=== PATIENT | female | born 1960 | race Caucasian/White ===

== ENCOUNTER → 2016-08-16 | Outpatient (CLI) | payer OTHER ==
[~2016-08-16] MED LIST: AFRIN NAE; CHOL100010 PO; CLR10 PO; HYDR25TA5 PO; KELP100T PO; LEVO200T PO; METO-217 PO; MULTTAB83 PO; POTA1POW PO; TRAM-10 PO
[2016-08-16 16:41] LABS: URINE APPEARANCE CLEAR (CLEAR); URINE BILIRUBIN NEG (NEG); URINE COLOR DK YELLOW; URINE EPITHELIAL CELL AUTO 0-5 /lpf (0-5); URINE NITRITE POS (NEG); URINE SPECIFIC GRAVITY 1.012 (1.000-1.030); UROBILINOGEN NEG (NEG); ZZUR CULT IF INDIC CLEAN CATCH NO
[2016-08-16 16:42] LABS: MANUAL MICROSCOPIC REQUIRED? NO; REVIEW REQ? NO
== END | disposition home or self-care (01) ==
LOC: C.LAB1850 15:45
PROVIDERS: ATTEND Internal Medicine
DX: R05 Cough (principal); N39.0 Urinary tract infection, site not specified

== ENCOUNTER → 2016-09-09 | Outpatient (CLI) | payer OTHER ==
[2016-09-09 14:58] LABS: LYME DISEASE AB IGG NEG (NEG)
[2016-09-09 14:59] LABS: LYME DISEASE AB IGM EQUIVOCAL (NEG)
[2016-09-13 09:30] LABS: 18KDIGG BAND NONREACTIVE (NONREACTIVE); 23KDIGG BAND NONREACTIVE (NONREACTIVE); 23KDIGM BAND REACTIVE (NONREACTIVE); 28KDIGG BAND NONREACTIVE (NONREACTIVE); 30KDIGG BAND NONREACTIVE (NONREACTIVE); 39KDIGG BAND NONREACTIVE (NONREACTIVE); 39KDIGM BAND NONREACTIVE (NONREACTIVE); 41KDIGG BAND REACTIVE (NONREACTIVE); 41KDIGM BAND NONREACTIVE (NONREACTIVE); 45KDIGG BAND NONREACTIVE (NONREACTIVE); 58KDIGG BAND NONREACTIVE (NONREACTIVE); 66KDIGG BAND NONREACTIVE (NONREACTIVE); 93KDIGG BAND NONREACTIVE (NONREACTIVE)
== END | disposition home or self-care (01) ==
LOC: C.LABBC 10:35
PROVIDERS: ATTEND Internal Medicine Geriatric Medicine
DX: E03.9 Hypothyroidism, unspecified (principal); Z86.19 Personal history of other infectious and parasitic diseases

== ENCOUNTER → 2016-12-18 | Outpatient (CLI) | payer BC, OTHER | END | disposition home or self-care (01) | LOC: C.LAB1850 12:03 | PROVIDERS: ATTEND Physician Assistant | DX: J01.90 Acute sinusitis, unspecified (principal) ==

== ENCOUNTER → 2017-01-08 | Outpatient (CLI) | payer BC ==
[2017-01-08 16:51] LABS: POTASSIUM 4.1 mmol/L (3.5-5.1)
[2017-01-08 17:05] LABS: THYROID STIMULATING HORMONE 2.92 uIu/ml (0.300-4.500)
[2017-01-15 05:39] LABS: EBV EARLY ANTIGEN AB <9.00 U/ML; EPSTEIN BARR VIR CAPSID IGG >750.00 U/ML
== END | disposition home or self-care (01) ==
LOC: C.LAB1850 14:35
PROVIDERS: ATTEND Physician Assistant
DX: G47.19 Other hypersomnia (principal); E03.9 Hypothyroidism, unspecified; I10 Essential (primary) hypertension

== ENCOUNTER → 2017-02-14 | Outpatient (CLI) | payer OTHER ==
--- NOTE | 2017-02-14 13:36 | DIAGNOSTIC IMAGING REPORT ---
CHEST 2 VIEWS ROUTINE CLINICAL HISTORY: COUGH COMPARISON STUDY: 03/09/2015 FINDINGS: The cardiac and mediastinal contours are normal. There is no evidence of focal pulmonary consolidation. There is no evidence of failure. No pleural effusions are visualized.[ IMPRESSION: No active disease in the chest. Electronically signed by: Andres Weinstein M.D. 02/14/2017 1:35 PM Dictated Date/Time: 02/14/2017 1:34 PM
== END | disposition home or self-care (01) ==
LOC: C.RAD1850 13:21
PROVIDERS: ATTEND Physician Assistant
DX: R05 Cough (principal); J45.909 Unspecified asthma, uncomplicated

== ENCOUNTER 2018-09-24 19:04 | Inpatient (IN) ==
--- NOTE | 2018-09-24 20:07 | XRay Report ---
XR forearm LT 2V CLINICAL HISTORY: pain post fall COMPARISON: None FINDINGS: No proximal left radial or ulnar fracture is noted. Alignment of the left elbow is anatomi c. No evidence for a left elbow joint effusion. Note is made of acute comminuted displaced distal lef t radial fracture with intra-articular extension and dorsal tilt of the distal component. There is no acute left ulnar fracture. IMPRESSION: Acute comminuted displaced distal left radial fracture with intra-articular extension and dorsal tilt of the distal component. Electronically signed by: Davidson Rodriguez M.D. 09/24/2018 8:06 PM
--- NOTE | 2018-09-24 20:08 | XRay Report ---
XR wrist LT 2V CLINICAL HISTORY: s/p fall and wrist pain COMPARISON: None FINDINGS: Note is made of an acute comminuted displaced distal left radial fracture with intra-artic ular extension. There is dorsal tilt of the distal component. There is no acute left ulnar fracture. Left wrist soft tissue swelling is present. 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 Carpal bones appear intact. IMPRESSION: Acute comminuted displaced distal left radial fracture with intra-articular extension and dorsal tilt of the distal component. Electronically signed by: Davidson Rodriguez M.D. 09/24/2018 8:07 PM
[2018-09-24] MEDS ORDERED: OXYCODONE HCL IR 5 MG TAB (IMMEDIATE RELEASE) PO STA (20:13)
--- NOTE | 2018-09-24 20:22 | Emergency Department Note ---
ED Provider Note CHIEF COMPLAINT: Left wrist injury HISTORY OF PRESENT ILLNESS: This [id number] 58-year-old female patient presents to the emergency department, ambulatory, complaining of pain in the left wrist after a fall. The patient states she was walking in to her house when she tripped and fell, landing on her left side. The patient states she was carrying a baby gate and landed on the left wrist, and the gait landed on top of the wrist. She reports severe pain in her left wrist and feels that her forearm is disconnected. The patient is not able to move their wrist. The patient states the pain is sharp and 10/10. No laceration, no weakness. No numbness or tingling. The patient denies any other injury. The patient is able to move their fingers and elbow, but is unwilling to move them much due to pain. The patient has not had a previous fracture to this wrist. The patient has taken no medications for the pain. REVIEW OF SYSTEMS: A 6 system review of systems was performed with positives and pertinent negatives in the HPI. ALLERGIES: Diazepam, Levaquin, silodosin, caffeine, Celebrex, lanolin, losartan, nebivolol, propylene glycol, yellow dye, blue dye, clarithromycin, erythromycin base, glipizide, Januvia PHYSICAL EXAM: Vital Signs: Reviewed Nurse's notes, vital signs stable. GENERAL: This is a 58-year-old white female, in no acute distress, but appears to be in pain, well-developed, well-neurished. NEURO: Alert and oriented to person place and time. Normal sensation to light and sharp touch. MUSCULOSKELETAL: There is no obvious deformity of the left wrist. There is tenderness and edema over the distal radius and ulna. There is also tenderness over the proximal radius and ulna. There is no snuff box tenderness. Range of motion is limited at the elbow and wrist due to pain. There is no tenderness of the elbow, hand or fingers. Bullet Maker strength 1/5. Radial pulse 2+. SKIN: Normal and intact. The hand is warm and well perfused with capillary refill less than 2 seconds. RADIOLOGY: XR forearm LT 2V CLINICAL HISTORY: pain post fall COMPARISON: None FINDINGS: No proximal left radial or ulnar fracture is noted. Alignment of the left elbow is anatomic. No evidence for a left elbow joint effusion. Note is made of acute comminuted displaced distal left radial fracture with intra- articular extension and dorsal tilt of the distal component. There is no acute left ulnar fracture. IMPRESSION: Acute comminuted displaced distal left radial fracture with intra- articular extension and dorsal tilt of the distal component. Electronically signed by: Davidson Rodriguez M.D. 09/24/2018 8:06 PM XR wrist LT 2V CLINICAL HISTORY: s/p fall and wrist pain COMPARISON: None FINDINGS: Note is made of an acute comminuted displaced distal left radial fracture with intra-articular extension. There is dorsal tilt of the distal component. There is no acute left ulnar fracture. Left wrist soft tissue swell ing is present. 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 Carpal bones appear intact. IMPRESSION: Acute comminuted displaced distal left radial fracture with intra- articular extension and dorsal tilt of the distal component. Electronically signed by: Davidson Rodriguez M.D. 09/24/2018 8:07 PM XR chest 1V portable CLINICAL HISTORY: pre-op COMPARISON STUDY: Chest CT June 08, 2018. FINDINGS: Lung volumes are normal. There is no consolidation or evidence for pulmonary edema. No pneumothorax or pleural effusion is noted. Cardiomediastinal silhouette is normal. IMPRESSION: No acute cardiopulmonary findings. Electronically signed by: Davidson Rodriguez M.D. 09/24/2018 10:17 PM EKG (interpreted by myself): Normal sinus rhythm with a ventricular rate of 87. No acute ischemic change. No ectopy. No previous EKG available for comparison. EMERGENCY DEPARTMENT COURSE: I examined the patient. She was offered analgesics either IM or IV and declined. The patient states unless we injected morphine or fentanyl directly into the extremity, it would not work for her. She was agreeable to a dose of oxycodone. An X-ray of the left forearm and wrist was reviewed by myself and radiologist and showed an acute comminuted displaced dis ant left radial fracture with intra-articular extension and dorsal tilt of the distal component. I contacted Dr. Mullins. He did review the film. He called back and offered the patient admission tonight with surgery tomorrow versus outpatient follow-up next week. He did not feel that reduction at this time would be terribly successful. I did discuss these options with the patient at bedside. She did elect for admission. I contacted Dr. Harpreet back and he was agreeable to complete the admission. Preop labs and EKG ordered and reviewed. Mild leukocytosis which I suspect is reactive and associated to stress. Renal, hepatic function electrolytes without significant abnormality. EKG reviewed by myself as above. A sugar tong Ortho-Glass splint was placed under my direction and the position was satisfactory. Neurovascular status rechecked and intact. The patient was given an arm sling for comfort. Please see Dr. Mullins's dictation regarding ongoing management and care of this patient. She was admitted under his service. I attest that I have personally reviewed the patient's current medication list. Blood Pressure Screening: Patient was found to have a slightly elevated blood pressure due to circumstances. I do not believe that the patient requires hypertension monitoring. Etiologies such as soft tissue injury, fracture, dislocation, neurovascular compromise, compartment syndrome, as well as others were entertained. DIAGNOSIS: Left distal radius fracture The chart was completed utilizing [employer] Speech voice recognition software. Gra mmatical errors, random word insertions, pronoun errors, and incomplete sentences are an occasional consequence of this system due to software limitations, ambient noise, and hardware issues. Any formal questions or concerns about the content, text, or information contained within the body of this dictation should be directly addressed to the provider for clarification. Impression & Plan Distal radius fracture, left, Fall Past Med/Surg History Medical History Hypertension Social History Preferred Language: Slovak Beliefs That Will Affect Care: Orthodoxy Current Living Situation: Alone and Significant Other Current Living Situation Comment: SO occasional occupant Other Information That Helps Us Care for You: Yes (Extremely sensitive to medications (see allergies)) Feels Safe at Home: Yes Safety Concerns: Feels Safe At This Time Smoking Status: Never smoker Hx Alcohol Use: Yes Hx Substance Use: No Results & Data Vital Signs Vital Signs - 24 hr 09/24/18 19:37 09/24/18 21:41 09/24/18 21:45 Temperature 36.6 C 36.8 C Temperature Source Oral Oral Sepsis Recent Fever Within 48 Hours No Sepsis New/Unexplained Change in Mental Status No Sepsis Action Taken by Nursing No Action Required Pulse Rate 95 H 85 Pulse Rate [Right Brachial] 77 Pulse Rhythm Regular Pulse Rhythm [Right Brachial] Pulse Strength Normal Pulse Strength [Right Brachial] Respiratory Rate 18 24 18 Respiratory Effort / Characteristics Non-Labored Spontaneous Non-Labored Spontaneous Respiratory Depth Normal Normal Respiratory Pattern Regular Regular Blood Pressure 198/139 H 181/106 H Blood Pressure [Right Arm] 160/87 H Blood Pressure Mean 158 Blood Pressure Mean [Right Arm] 111 Blood Pressure Position Sitting Blood Pressure Position [Right Arm] Pulse Oximetry 94 95 96 Oxygen Delivery Method Room Air Room Air Room Air 09/24/18 23:22 Temperature 36.6 C Temperature Source Oral Sepsis Recent Fever Within 48 Hours Sepsis New/Unexplained Change in Mental Status Sepsis Action Taken by Nursing Pulse Rate Pulse Rate [Right Brachial] 87 Pulse Rhythm Pulse Rhythm [Right Brachial] Regular Pulse Strength Pulse Strength [Right Brachial] Normal Respiratory Rate 22 Respiratory Effort / Characteristics Respiratory Depth Normal Respiratory Pattern Blood Pressure Blood Pressure [Right Arm] 181/97 H Blood Pressure Mean Blood Pressure Mean [Right Arm] 125 Blood Pressure Position Blood Pressure Position [Right Arm] Lying Pulse Oximetry 94 Oxygen Delivery Method Room Air Laboratory Data Result diagrams: 09/24/18 21:00 09/24/18 22:06 Lab Results 09/24/18 09/24/18 09/24/18 Range/Units 21:00 21:00 22:06 WBC 13.50 H (4.8-10.8) K/uL RBC 5.17 (4.2-5.4) M/uL Hgb 15.5 (12.0-16.0) g/dL Hct 45.5 (37-47) % MCV 88.0 (80-100) fL MCH 30.0 (25-34) pg MCHC 34.1 (32-36) g/dL RDW Std Deviation 45.6 (36.4-46.3) fL RDW Coeff of Dimitris 14.1 (11.5-14.5) % Plt Count 300 (130-400) K/uL MPV 10.1 (7.4-10.4) fL Immature Gran % (Auto) 0.3 % Neut % (Auto) 64.4 % Lymph % (Auto) 25.2 % [place] % (Auto) 7.6 % Eos % (Auto) 2.1 % Baso % (Auto) 0.4 % Immature Gran # (Auto) 0.04 H (0.00-0.02) K/uL Neut # (Auto) 8.70 H (1.4-6.5) K/uL Lymph # (Auto) 3.40 (1.2-3.4) K/uL [place] # (Auto) 1.02 H (0.11-0.59) K/uL Eos # (Auto) 0.29 (0-0.5) K/uL Baso # (Auto) 0.05 (0-0.2) K/uL Sodium 137 (136-145) mmol/L Potassium 3.7 (3.5-5.1) mmol/L Chloride 107 (98-107) mmol/L Carbon Dioxide 23 (21-32) mmol/L Anion Gap 7.0 (3-11) BUN 18 (7-18) mg/dl Creatinine 0.66 (0.6-1.2) mg/dl Est Cr Clr Drug Dosing 112.6 ml/min Est GFR ( Amer) 112.9 Est GFR (Non-Af Amer) 97.4 BUN/Creatinine Ratio 27.5 H (10-20) Glucose 152 H (70-99) mg/dl Calcium 9.1 (8.5-10.1) mg/dl Total Bilirubin 0.4 (0.2-1) mg/dl AST 37 (15-37) U/L ALT 67 (12-78) U/L Alkaline Phosphatase 113 (45-117) U/L Total Protein 8.0 (6.4-8.2) gm/dl Albumin 3.9 (3.4-5.0) gm/dl Globulin 4.1 H (2.5-4.0) gm/dl Albumin/Globulin Ratio 1.0 (0.9-2) Administered Medications Sodium Chloride (Nss 1000ml) 1,000 mls @ 80 mls/hr IV .[id number] KEVIN Stop: 10/24/18 22:06 Last Admin: 09/24/18 23:40 Dose: 80 mls/hr Documented by: [id number] Discontinued Medications Oxycodone HCl (Roxicodone Immediate Rel) 5 mg PO NOW STA Stop: 09/24/18 20:14 Last Admin: 09/24/18 20:36 Dose: 5 mg Documented by: [id number] Oxycodone HCl (Roxicodone Immediate Rel) Confirm Administered Dose 5 mg .ROUTE .STK-MED ONE Stop: 09/24/18 23:39 Last Admin: 09/24/18 23:40 Dose: 5 mg Documented by: [id number] Discharge Plan Visit Data *Final* Discharge Date/Time: 09/24/18 21:41 Chief Complaint: Arm Pain Stated Complaint: FALL, LEFT WRIST/ARM PAIN ED Provider: Savanah Ochoa ED Midlevel Provider: Kerri Gardner Discharge Problem: Distal radius fracture, left, Fall Patient Disposition: Admitted As Inpatient Condition: Good Discharge Instructions Interventions: ED Discharge Assessment Last Done: 09/24/18 21:41
[2018-09-24 21:11] LABS: Basophils # (auto) 0.05 K/uL (0-0.2); Basophils % (auto) 0.4 %; Eosinophils # (auto) 0.29 K/uL (0-0.5); Eosinophils % (auto) 2.1 %; Hematocrit (blood only) 45.5 % (37-47); Hemoglobin 15.5 g/dL (12.0-16.0); Immature Granulocytes # (auto) 0.04 K/uL (0.00-0.02); Immature Granulocytes % (auto) 0.3 %; Lymphocytes % (auto) 25.2 %; Mean Corpuscular Hgb Conc 34.1 g/dL (32-36); Mean Platelet Volume 10.1 fL (7.4-10.4); Monocytes # (auto) 1.02 K/uL (0.11-0.59); Monocytes % (auto) 7.6 %; Neutrophils % (auto) 64.4 %; Platelet Count 300 K/uL (130-400); RDW Coefficient of Variation 14.1 % (11.5-14.5); RDW Standard Deviation 45.6 fL (36.4-46.3); Red Blood Count 5.17 M/uL (4.2-5.4)
[2018-09-24 21:38] LABS: Albumin Level 3.9 gm/dl (3.4-5.0); BUN Creatinine Ratio 27.5 (10-20); Bilirubin,Total 0.4 mg/dl (0.2-1); Calcium 9.1 mg/dl (8.5-10.1); Creatinine Clr Calc Pharmacy 112.6 ml/min; Est GFR (African American) 112.9; Est GFR (Non-African American) 97.4; Globulin 4.1 gm/dl (2.5-4.0)
[2018-09-24] MEDS ORDERED: METOCLOPRAMIDE HCL INJ 5 MG/ML 2 ML VIAL IV PRN (22:07)
[2018-09-24] MEDS ORDERED: ONDANSETRON INJ 2 MG/ML 2 ML VIAL IV PRN (22:07)
--- NOTE | 2018-09-24 22:18 | XRay Report ---
XR chest 1V portable CLINICAL HISTORY: pre-op COMPARISON STUDY: Chest CT June 08, 2018. FINDINGS: Lung volumes are normal. There is no consolidation or evidence for pulmonary edema. No pneu mothorax or pleural effusion is noted. Cardiomediastinal silhouette is normal. IMPRESSION: No acute cardiopulmonary findings. Electronically signed by: Davidson Rodriguez M.D. 09/24/2018 10:17 PM
[2018-09-24 22:36] LABS: Potassium 3.7 mmol/L (3.5-5.1)
[2018-09-24] MEDS ORDERED: OXYCODONE HCL IR 5 MG TAB (IMMEDIATE RELEASE) ONE (23:38)
[2018-09-24] MEDS: SODIUM CHLORIDE 0.9% 1000ML 1,000 ML IV SCH (23:40)
[2018-09-25] MEDS: HYDROmorphone INJ 0.5 MG/0.5 ML SYR IV PRN (01:55)
[2018-09-25] MEDS: OXYCODONE HCL IR 5 MG TAB (IMMEDIATE RELEASE) PO PRN ×2 (03:50→10:15)
[2018-09-25] MEDS ORDERED: CEFAZOLIN 2000MG 2,000 MG/15 ML SYR IV SCH (06:00)
--- NOTE | 2018-09-25 07:00 | History & Physical Report ---
Date of Service September 25, 2018 Assessment & Plan (1) Distal radius fracture, left: She is being admitted to the orthopedic service for open reduction internal fixation the following day. She understands all the risks, benefits, and alternatives of procedure and would like to proceed. She will be n.p.o. past midnight tonight. We will have case management talk to her after the procedure about possible return home, likely the following day. 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 She was at home last evening when she slipped and fell on a wet floor and fell directly on her left outstretched hand. She had immediate pain. She came to the emergency room where radiographs demonstrated a displaced left distal radius fracture. Given the fact that she lives alone and her body habitus, I was not confident that a reduction would hold. I felt it was best to admit her to the hospital and underwent open reduction internal fixation the following morning. Allergies Allergy/AdvReac Type Severity Reaction Status Date / Time diazepam Allergy Severe ANAPHYLAXIS Verified 06/03/18 12:26 levofloxacin Allergy Severe SEVERE Verified 06/03/18 12:26 HEADACH,ANAPHYLATIC SHOCK silodosin Allergy Severe SEVERE Verified 06/03/18 12:26 SWELLING, RESPIRATORY DISTRESS caffeine Allergy Mild Verified 06/03/18 12:26 blue dye Allergy Unknown RASH Verified 06/03/18 12:26 celecoxib Allergy Unknown RASH Unverified 06/03/18 12:26 lanolin Allergy Unknown Verified 06/03/18 12:26 losartan Allergy Unknown RASH Verified 06/03/18 12:26 nebivolol Allergy Unknown RASH Verified 06/03/18 12:26 propylene glycol Allergy Unknown RASH Verified 06/03/18 12:26 sorbitan esters Allergy Unknown RASH Verified 06/03/18 12:26 yellow dye Allergy Unknown RASH Verified 06/03/18 12:26 clarithromycin AdvReac Intermediate N/V/D Verified 06/03/18 12:26 erythromycin base AdvReac Intermediate GI Verified 06/03/18 12:26 COMPLAINTS glipizide AdvReac Joint Pain Unverified 06/03/18 12:26 sitagliptin [From Januvia] AdvReac Joint Pain Unverified 06/03/18 12:26 Home Medications Home Medications Medication Instructions Recorded Confirmed Type ciprofloxacin HCl [Cipro] 500 mg PO BID #20 tab 06/03/18 Rx hydrocodone-acetaminophen [[place]] 1 tab PO Q4H PRN #10 tab 06/03/18 Rx pentosan polysulfate sodium 100 mg PO TID #14 cap 06/03/18 Rx [Elmiron] telmisartan 40 mg PO DAILY 06/03/18 06/03/18 History Past Med/Surg History Medical History Hypertension Social History Preferred Language: Citizen Of [place] Beliefs That Will Affect Care: Tenriism Current Living Situation: Alone and Significant Other Current Living Situation Comment: SO occasional occupant Other Information That Helps Us Care for You: Yes (Extremely sensitive to medications (see allergies)) Feels Safe at Home: Yes Safety Concerns: Feels Safe At This Time Smoking Status: Never smoker Hx Alcohol Use: Yes Hx Substance Use: No Review of Systems All systems reviewed & are unremarkable except as noted in HPI & below Physical Exam Vital Signs (Past 24 Hours): Last Vital Signs Temp 36.7 C 09/25/18 00:41 Pulse 81 09/25/18 00:41 Resp 20 09/25/18 00:41 BP 160/89 H 09/25/18 00:41 Pulse Ox 95 09/25/18 00:41 Musculoskeletal: On physical examination of her left wrist, there is a coaptation splint in place. She is active motion of her fingers. Sensations intact. Results & Data Laboratory Results H & H 09/24/18 Range/Units 21:00 Hgb 15.5 (12.0-16.0) g/dL Hct 45.5 (37-47) % Diagnostic Findings X-rays of the left wrist show a displaced intra-articular left distal radius fracture. There is some dorsal displacement and dorsal comminution. Medications Administered Hydromorphone HCl (Dilaudid) 0.5 mg IV Q2H PRN PRN Reason: Pain Stop: 10/08/18 22:06 Last Admin: 09/25/18 01:55 Dose: 0.5 mg Documented by: [id number] Sodium Chloride (Nss 1000ml) 1,000 mls @ 80 mls/hr IV .[id number] KEVIN Stop: 10/24/18 22:06 Last Admin: 09/24/18 23:40 Dose: 80 mls/hr Documented by: [id number] Oxycodone HCl (Roxicodone Immediate Rel) 5 mg PO Q4H PRN PRN Reason: Pain Stop: 10/08/18 23:31 Last Admin: 09/25/18 03:50 Dose: 5 mg Documented by: [id number]
[2018-09-25] MEDS: CYCLOBENZAPRINE HCL 5 MG TAB PO SCH ×2 (07:26→13:17)
[2018-09-25] MEDS: ACETAMINOPHEN 325 MG TAB PO PRN ×3 (07:33→20:36)
[2018-09-25] MEDS: SODIUM CHLORIDE 0.9% 1000ML 1,000 ML IV SCH (10:15)
[2018-09-25] MEDS ORDERED: ROPIVACAINE 0.5% 5 MG/ML 30 ML VIAL ONE (14:40)
[2018-09-25] MEDS ORDERED: fentaNYL citrate 100 MCG/2 ML VIAL IV PRN (14:40)
[2018-09-25] MEDS ORDERED: ePHEDrine sulfate 50 MG/ML AMP IV PRN (14:40)
[2018-09-25] MEDS ORDERED: ONDANSETRON INJ 2 MG/ML 2 ML VIAL IV PRN (14:40)
[2018-09-25] MEDS ORDERED: ATROPINE SULFATE 0.1 MG/ML 10ML SYR IV PRN (14:40)
--- NOTE | 2018-09-25 15:10 | Anesthesiology Consultation ---
Date of Service September 25, 2018 Assessment & Plan (1) Encounter for pre-operative examination: Chart Review Chart Review: Acceptable Risk for Surgery and Patient NOT seen in Pre Admission Testing Consults Requested none NPO Date Last Intake of Fluids: 09/24/18 Time Last Intake of Fluids: 23:00 Last Intake of Fluids Comment: 1300 sips Date Last Intake of Solids: 09/24/18 Time Last Intake of Solids: 23:00 History Surgery Operation Date: 09/25/18 15:25 Proposed Procedures p Left Distal Radius Fracture Open Reduction Internal Fixation - Dao Mullins, Height/Weight Height: 5 ft 6 in Weight: 104.5 kg Allergies Allergy/AdvReac Type Severity Reaction Status Date / Time diazepam Allergy Severe ANAPHYLAXIS Verified 06/03/18 12:26 levofloxacin Allergy Severe SEVERE Verified 06/03/18 12:26 HEADACH,ANAPHYLATIC SHOCK silodosin Allergy Severe SEVERE Verified 06/03/18 12:26 SWELLING, RESPIRATORY DISTRESS caffeine Allergy Mild Verified 06/03/18 12:26 blue dye Allergy Unknown RASH Verified 06/03/18 12:26 celecoxib Allergy Unknown RASH Unverified 06/03/18 12:26 lanolin Allergy Unknown Verified 06/03/18 12:26 losartan Allergy Unknown RASH Verified 06/03/18 12:26 nebivolol Allergy Unknown RASH Verified 06/03/18 12:26 propylene glycol Allergy Unknown RASH Verified 06/03/18 12:26 sorbitan esters Allergy Unknown RASH Verified 06/03/18 12:26 yellow dye Allergy Unknown RASH Verified 06/03/18 12:26 clarithromycin AdvReac Intermediate N/V/D Verified 06/03/18 12:26 erythromycin base AdvReac Intermediate GI Verified 06/03/18 12:26 COMPLAINTS glipizide AdvReac Joint Pain Unverified 06/03/18 12:26 sitagliptin [From Januvia] AdvReac Joint Pain Unverified 06/03/18 12:26 Medications Home Medications Medication Instructions Recorded Confirmed Last Taken ciprofloxacin HCl [Cipro] 500 mg PO BID #20 tab 06/03/18 Unknown hydrocodone-acetaminophen [[place]] 1 tab PO Q4H PRN #10 tab 06/03/18 Unknown pentosan polysulfate sodium 100 mg PO TID #14 cap 06/03/18 Unknown [Elmiron] telmisartan 40 mg PO DAILY 06/03/18 06/03/18 Unknown Active Medications Generic Name Dose Route Start Last Admin Trade Name Freq PRN Reason Stop Dose Admin Acetaminophen 650 mg 09/25/18 06:55 09/25/18 12:00 Tylenol PO 10/25/18 06:54 650 mg Q4H PRN Administration Mild Pain Cyclobenzaprine HCl 5 mg 09/25/18 07:15 09/25/18 13:17 Flexeril PO 10/25/18 07:14 5 mg TID KEVIN Administration Hydromorphone HCl 0.5 mg 09/24/18 22:07 09/25/18 01:55 Dilaudid IV 10/08/18 22:06 0.5 mg Q2H PRN Administration Pain Sodium Chloride 1,000 mls @ 80 mls/hr 09/24/18 22:07 09/25/18 14:31 Nss 1000ml IV 10/24/18 22:06 0 mls/hr .[id number] KEVIN Infusion Oxycodone HCl 5 mg 09/24/18 23:32 09/25/18 10:15 Roxicodone Immediate Rel PO 10/08/18 23:31 5 mg Q4H PRN Administration Pain Past Medical History Medical History Obesity Hypertension Past Surgical History Surgical History History of carpal tunnel surgery Total knee replacement status B/l Past Anesthesia History No Hx of Anesthesia Complications and No Family Hx of Anesthesia Complications History of PONV No Motion Sickness Screening History of Motion Sickness: No Social History Smoking Status: Never smoker Hx Alcohol Use: Yes Alcohol type: hard liquor alcohol intake frequency: holidays/special occasions only Hx Substance Use: No substance use type: does not use Exercise / Class Metabolic Activity II 4-5 Yardwork/Stairs/Walk up hill Physical Exam Vital Signs Last Vital Signs Temp 36.8 C 09/25/18 14:48 Pulse 84 09/25/18 14:48 Resp 16 09/25/18 14:48 BP 190/103 H 09/25/18 14:48 Pulse Ox 94 09/25/18 14:48 Testing Electrocardiogram Date: 09/24/18 Findings: + NSR @ (87) lvh, lad Laboratory Results 09/24/18 21:00 09/24/18 22:06 09/25/18 08:05 POC Glucose 162 H
[2018-09-25] MEDS ORDERED: LIDOCAINE/EPINEPHRINE 1% 20 ML VIAL ONE (16:28)
[2018-09-25] MEDS ORDERED: PROPOFOL IV EMULSION 10 MG/ML 20 ML VIAL IV ONE (17:04)
[2018-09-25] MEDS ORDERED: LABETALOL HCL IV 5 MG/ML 20ML IV ONE (17:04)
--- NOTE | 2018-09-25 17:41 | Operative Report ---
Post Operative Report Pre & Post Diagnosis Operation Date: 09/25/18 15:25 Pre-Op Diagnosis: Displaced intra-articular left distal radius fracture Post-Op Diagnosis: Displaced intra-articular left distal radius fracture Procedure Operation Date: 09/25/18 15:25 Actual Procedures p Open Reduction Internal Fixation 3 part intra-articular distal radius fracture of the left Wrist(Left) - Dao Mullins DO Surgeon Dao Mullins DO Computer Sciences Professor Dao Ball PAC Estimated Blood Loss 10 Findings Consistent with Post-Op Diagnosis Specimens None Complications none Disposition Disposition: Recovery Room Indications Elvis a 58-year-old female who fell last night on her left outstretched hand. She came to the emergency room and radiographs demonstrated displaced distal radius fracture. She lives alone. She was admitted to the orthopedic service. She elected to undergo open reduction internal fixation of the distal radius fracture. Description of Procedure On September 25, 2018 the patient was brought down from her hospital bed to the preoperative holding area. The operative extremities identified and signed. She was given a supraclavicular nerve block on the left. She was taken back to the operating room and given some mild basic sedation. The left wrist was then prepped and draped in sterile fashion. A timeout was done. The patient and the operative extremity was properly identified. A midline incision was made directly over the flexor carpi radialis tendon. Dissection was taken down to the tendon at the tendon was retracted ulnarly. The supinator was elevated off the distal radius. The fracture was easily exposed. The fracture was then reduced. A Synthes 3-hole distal radial locking plate was then placed. A single screw was placed in the combination hole. Fluoroscopy was used to ensure adequate alignment of the plate and adequate reduction of the fracture. Once I was happy with the alignment of the plate the screw was tightened. The fracture was then reduced to the plate. A single locking screw was placed distally. Fluoroscopic images showed anatomic alignment of the plate and anatomic reduction of the fracture. The remainder of the distal locking screws were placed. The length of the screws were checked in the fluoroscopy. 2 proximal locking screws were then placed. Final fluoroscopic images showed anatomic alignment and reduction. No screws were penetrating the joint. The wound was then irrigated. Surrounding soft tissues were injected with lidocaine with epinephrine. The tourniquet was deflated and hemostasis was obtained. The skin was then closed with 3-0 Vicryl and 4-0 nylon suture. She was then placed in a volar splint. She was then taken to the post anesthesia care unit in stable condition. She tolerated the procedure well. I attest to the content of the Intraoperative Record and any orders documented therein. Any exceptions are noted below.
--- NOTE | 2018-09-25 17:56 | Fluoroscopy Report ---
FL wrist LT 2V CLINICAL HISTORY: L ORIF OF DISTAL RADIUS COMPARISON STUDY: Left wrist 09/24/2018. FLUOROSCOPY TIME: 29 seconds. FINDINGS: 2 fluoroscopic spot images of the left wrist demonstrate internal fixation of a distal radi us fracture with plate and screws. The hardware appears intact. The alignment is near-anatomic. IMPRESSION: Fluoroscopy provided for internal fixation of a distal left radius fracture. Electronically signed by: Zachary Amin M.D. 09/25/2018 5:55 PM
[2018-09-25] MEDS ORDERED: NALOXONE HCL 0.4 MG/1 ML VIAL/CARP IV PRN (18:38)
[2018-09-25] MEDS ORDERED: SODIUM CHLORIDE 0.9% 1000ML 1,000 ML IV SCH (18:38)
[2018-09-25] MEDS ORDERED: MAGNESIUM HYDROXIDE SUSP 30 ML UDC PO PRN (18:38)
[2018-09-25] MEDS ORDERED: BISACODYL 10 MG SUPP PR PRN (18:38)
--- NOTE | 2018-09-25 18:50 | Anesthesiology Progress Note ---
Date of Service September 25, 2018 Anesthesia Post Procedure Vital Signs Vital Signs: Temp Pulse Pulse Pulse Resp BP BP 09/25/18 18:15 36.4 C L 78 16 170/81 H 09/25/18 18:05 80 16 164/84 H 09/25/18 17:55 36.3 C L 81 12 145/98 H 09/25/18 14:48 36.8 C 84 16 190/103 H 09/25/18 07:36 36.6 C 80 16 160/95 H 09/25/18 00:41 36.7 C 81 20 160/89 H 09/24/18 23:22 36.6 C 87 22 181/97 H 09/24/18 21:45 36.8 C 77 18 160/87 H 09/24/18 21:41 85 24 181/106 H 09/24/18 19:37 36.6 C 95 H 18 198/139 H Pulse Ox 09/25/18 18:15 97 09/25/18 18:05 96 09/25/18 17:55 94 09/25/18 14:48 94 09/25/18 07:36 96 09/25/18 00:41 95 09/24/18 23:22 94 09/24/18 21:45 96 09/24/18 21:41 95 09/24/18 19:37 94 Pain Intensity Left Arm: Pain Intensity: 6 Notes Mental Status: alert / awake / arousable and participated in evaluation Patient Amnestic to Procedure: Yes Nausea / Vomiting: adequately controlled Pain: adequately controlled Airway Patency, RR, SpO2: stable & adequate BP & HR: stable & adequate Hydration State: stable & adequate Anesthetic Complications: no major complications apparent and Pt Satisfied with anesthetic care
[2018-09-25] MEDS: DOCUSATE SODIUM 100 MG CAP PO SCH (20:34)
[2018-09-25] MEDS: SENNA 8.6 MG TAB PO SCH (20:35)
[2018-09-26] MEDS: OXYCODONE/ACETAMINOPHEN 5mg/325mg TAB PO PRN ×3 (00:02→08:09)
[2018-09-26] MEDS: OXYCODONE HCL IR 5 MG TAB (IMMEDIATE RELEASE) PO PRN (05:42)
[2018-09-26] MEDS: CYCLOBENZAPRINE HCL 5 MG TAB PO SCH ×4 (07:33→20:08)
[2018-09-26] MEDS: DOCUSATE SODIUM 100 MG CAP PO SCH ×2 (08:10→20:11)
[2018-09-26] MEDS: HYDROmorphone INJ 0.5 MG/0.5 ML SYR IV PRN ×3 (08:59→20:08)
--- NOTE | 2018-09-26 09:38 | Orthopedic Progress Note ---
Date of Service September 26, 2018 Assessment & Plan (1) Distal radius fracture, left: We will give her some medications for the nausea. She does want to go home today. I offered her to stay an extra day if she was not feeling well but she did want to go home. She says a regimen of [place] and tramadol as well as Flexeril seem to work well for her pain. I told her I would give her those medications to take orally at home. She is going to be in the sling for at least 2 weeks until I see her in the office. She is orthopedically stable for discharge. Present on Admission?: Yes Valentine Aranda was seen and examined at bedside this morning. Unfortunately she still having a lot of pain and soreness. She is having some pain in her shoulder and pain in her wrist. She is very nauseous as well from the pain medications. She had no acute events overnight. Physical Exam Vital Signs (Past 24 Hours): Last Vital Signs Temp 36.9 C 09/26/18 07:44 Pulse 91 H 09/26/18 07:44 Resp 18 09/26/18 07:44 BP 180/111 H 09/26/18 07:44 Pulse Ox 95 09/26/18 07:44 Musculoskeletal: On physical examination of the left wrist, she can wiggle her fingers a little bit and her sensation is intact. She is wearing her sling as instructed. She has soreness in the shoulder region as well as in the wrist. She is very nauseous at bedside today. (1) Distal radius fracture, left Encounter type: initial encounter Fracture morphology: unspecified fracture morphology Fracture type: closed Qualified Code(s): S52.502A - Unspecified fracture of the lower end of left radius, initial encounter for closed fracture
[2018-09-26] MEDS: HYDROCODONE/ACETAMOPHEN 5/325MG TAB PO PRN ×3 (09:56→21:59)
--- NOTE | 2018-09-26 10:43 | XRay Report ---
LEFT SHOULDER 3 VIEWS HISTORY: Left shoulder pain COMPARISON: None. FINDINGS: There is no fracture or dislocation. Soft tissues are unremarkable. The left clavicle is in tact. Cartilage spaces are maintained for age. IMPRESSION: No fracture or dislocation within the left shoulder. Electronically signed by: Zachary Amin M.D. 09/26/2018 10:42 AM
[2018-09-26] MEDS: TRAMADOL HCL 50 MG TABLET PO PRN ×3 (11:42→23:13)
[2018-09-26] MEDS ORDERED: COUGH DROP (SUGAR FREE) LOZ 24 LOZ/1 BOX BUCCAL PRN (14:48)
[2018-09-26] MEDS: ACETAMINOPHEN 325 MG TAB PO PRN ×2 (15:07→19:29)
[2018-09-26] MEDS: SENNA 8.6 MG TAB PO SCH (20:11)
[2018-09-27] MEDS: HYDROmorphone INJ 0.5 MG/0.5 ML SYR IV PRN ×5 (00:43→13:32)
[2018-09-27] MEDS: HYDROCODONE/ACETAMOPHEN 5/325MG TAB PO PRN ×2 (05:49→12:33)
[2018-09-27] MEDS: CYCLOBENZAPRINE HCL 5 MG TAB PO SCH ×2 (08:42→13:31)
[2018-09-27] MEDS: DOCUSATE SODIUM 100 MG CAP PO SCH (08:42)
--- NOTE | 2018-09-27 19:48 | Orthopedic Progress Note ---
Date of Service September 27, 2018 Assessment & Plan (1) Distal radius fracture, left: Overall she is doing much better. The current pain regimen of [place], tramadol, and Flexeril seems to be working. She will be seen again today by physical therapy for simple ambulation. If she is doing well she can be discharged home with home health. She will follow-up with orthopedics in 2 weeks. Present on Admission?: Yes Valentine Aranda was seen and examined at bedside this morning. Overall she is doing much better. She was too nauseous to leave yesterday. Her pain is better controlled. She was able to get some sleep. She has no complaints. Physical Exam Vital Signs (Past 24 Hours): Last Vital Signs Temp 36.9 C 09/27/18 10:21 Pulse 94 H 09/27/18 10:21 Resp 18 09/27/18 10:21 BP 174/93 H 09/27/18 10:21 Pulse Ox 92 09/27/18 10:21 Musculoskeletal: On physical examination of the left wrist, the dressing is clean and dry. She is a little bit of motion of her fingers. Sensations intact. She is less pain in her shoulder today. Results & Data Diagnostic Findings X-rays of the left shoulder were essentially negative. (1) Distal radius fracture, left Encounter type: initial encounter Fracture morphology: unspecified fracture morphology Fracture type: closed Qualified Code(s): S52.502A - Unspecified fracture of the lower end of left radius, initial encounter for closed fracture
--- NOTE | 2018-09-27 19:50 | Discharge Summary ---
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 She was at home last evening when she slipped and fell on a wet floor and fell directly on her left outstretched hand. She had immediate pain. She came to the emergency room where radiographs demonstrated a displaced left distal radius fracture. Given the fact that she lives alone and her body habitus, I was not confident that a reduction would hold. I felt it was best to admit her to the hospital and underwent open reduction internal fixation the following morning. Discharge Data Consultations 09/24/18 20:31 ED Decision to Admit Stat 09/24/18 22:07 Consult Case Management - Discharge Planning Routine Procedures Performed Operation Date: 09/25/18 15:25 Actual Procedures p Open Reduction Internal Fixation Left Wrist(Left) - Dao Mullins DO Hospital Course (1) Distal radius fracture, left: On September 25, 2018 Alvarez was brought down from her hospital room to the operating room. She underwent an open reduction and internal fixation of the left distal radius without complication. She had a regional block for anesthesia. Postoperatively she was placed in a volar splint and discharged to general orthopedic floors. Her postoperative course was comp gated by pain control. On postop day #1 she was very sore in a lot of pain. We changed her pain regimen to [place], tramadol, and Flexeril. This seemed to help her some. She was nauseous throughout the day. She was having a lot of shoulder pain in her shoulder x-ray was taken which was negative. On postop day #2 she was fee ling much better. Her pain was well controlled and she had less nausea. She was then discharged to home with home health. She will follow-up with orthopedics in 2 weeks. Discharge Instructions Home Medications Medication Instructions Recorded Confirmed telmisartan 40 mg PO DAILY 06/03/18 06/03/18 Previous Rx's Medication Instructions Recorded ciprofloxacin HCl [Cipro] 500 mg PO BID #20 tab 06/03/18 pentosan polysulfate sodium 100 mg PO TID #14 cap 06/03/18 [[place]] cyclobenzaprine 5 mg PO BID PRN #40 tab 09/26/18 hydrocodone-acetaminophen [[place]] 1 tab PO Q4H PRN #40 tab 09/26/18 tramadol 50 mg PO Q6H PRN #40 tab 09/26/18
== END 2018-09-27 13:49 | disposition home health service (06) | DRG 511 ==
LOC: ED 19:04 → 3W 20:36